=== PATIENT | female | born 1995 | race Caucasian/White ===

== ENCOUNTER 2018-09-10 01:51 | Emergency (ER) | payer OTHER ==
[2018-09-10] MEDS ORDERED: Ibuprofen 600 MG TAB ONE (02:04)
--- NOTE | 2018-09-10 10:24 | RAD ---
RIGHT FOREARM 2 VIEWS: Date: 09/10/18 HISTORY: Right forearm pain. FINDINGS/IMPRESSION: The right radius and ulna are intact. No bony abnormalities are seen. POS: [facility]
== END 2018-09-10 02:25 | disposition home or self-care (01) ==
LOC: SCSER 01:51
DX: S50.11XA Contusion of right forearm, initial encounter (principal); E03.9 Hypothyroidism, unspecified; W22.8XXA Striking against or struck by other objects, initial encounter

== ENCOUNTER 2018-10-26 10:54 | Outpatient (CLI) | payer OTHER | END 2018-10-26 10:55 | disposition home or self-care (01) | LOC: DTY/OP 10:54 | PROVIDERS: ATTEND Internal Medicine | DX: K31.84 Gastroparesis (principal); R13.19 Other dysphagia | CPT/HCPCS: 97802 ==

== ENCOUNTER 2019-01-26 07:34 | Outpatient (CLI) | payer OTHER ==
--- NOTE | 2019-01-26 09:47 | MRI ---
MRI THORACIC SPINE WITHOUT CONTRAST: Date: 01/26/19 HISTORY: GA9.29 other chronic pain. R10.9 right flank pain. COMPARISON: None. FINDINGS: No marrow infiltrative process. Normal thoracic spinal alignment. The vertebral body heights and disc spaces are normal. There is no neural foraminal or spinal canal narrowing. Ribs are normal. Paraspinal muscles are normal. There is a T2 hyperintense focus abutting the superio r left kidney which may reflect a cyst, although this is incompletely evaluated on this examination. An adrenal cyst is also possible. No pleural effusion. The aortic contour is normal. IMPRESSION: 1. Normal appearance of the thoracic spine. No fracture, malalignment, marrow infiltrative process, nor neural foraminal or spinal canal narrowing. 2. Normal cord signal. 3. No ventricular or extradural mass. 4. T2 hyperintense focus along the left superior renal cortex versus the adrenal gland. Nonemergent adrenal protocol CT or MRI is recommended. CODE T. POS: [facility]
== END 2019-01-26 07:35 | disposition home or self-care (01) ==
LOC: TBSIIMAG 07:34
PROVIDERS: ATTEND Family Medicine
DX: R10.9 Unspecified abdominal pain (principal); G89.29 Other chronic pain
CPT/HCPCS: 72146